=== PATIENT | female | born 1990 | race Caucasian/White ===

== ENCOUNTER 2019-09-28 18:16 | Inpatient (IN) ==
[2019-09-28 16:46] LABS: Basophils % 0.2 %; Eosinophils # 0.1 K/mcL (0.0-0.6); Eosinophils % 0.7 %; Hematocrit 30.3 % (35.3-44.9); Hemoglobin 9.3 g/dL (11.5-15.4); Immature Granulocytes % 1.1 % (0-4); Lymphocytes # 2.1 K/mcL (0.6-4.6); Lymphocytes % 15.5 %; Mean Corpuscular HGB Conc 30.7 g/dL (31.6-35.5); Mean Corpuscular Hemoglobin 27.4 pg (28.0-33.3); Mean Corpuscular Volume 89.4 fL (83.0-100.0); Mean Platelet Volume 11.1 fL (9.4-12.4); Monocytes % 7.3 %; Neutrophils # 9.9 K/mcL (1.6-8.9); Platelet Count 304 K/mcL (140-400); Red Blood Count 3.39 M/mcL (3.82-4.97); Segmented Neutrophils % 75.2 %; White Blood Count 13.2 K/mcL (4.3-11.1)
[2019-09-28 16:55] LABS: Protein/Creatinine Ratio,Urine 1.35 mg/mg (0.00-0.20)
[2019-09-28 17:05] LABS: Alanine Aminotransferase 9 Units/L (7-52); Aspartate Amino Transferase 14 Units/L (13-39); BUN/Creatinine Ratio 14 (6-26); Blood Urea Nitrogen 6 mg/dL (6-20); Lactate Dehydrogenase 216 Units/L (140-271); Uric Acid 3.8 mg/dL (2.3-7.6); eGFR For African Americans > 60 (> 60); eGFR For Non-African Americans > 60 (> 60)
[~2019-09-28 18:16] MED LIST: *HR* FentaNYL (PF) 100 MCG/2 ML VIAL IVP PRN; Famotidine 20 MG/2 ML VIAL IVP PRN; Lidocaine 1% 20 ML MDV INFILT PRN; Metoclopramide 10 MG/2 ML VIAL IVP PRN; Naloxone 0.4 MG/ML INJ IVP PRN; Ondansetron 4 MG/2 ML VIAL IVP PRN
[2019-09-28] MEDS ORDERED: Ringers Solution, Lactated 1,000 ML IVC SCH (18:30)
[2019-09-28 18:51] LABS: Amphetamine Screen,Urine Negative ng/mL (Cutoff=1000); Barbiturate Screen,Urine Negative ng/mL (Cutoff=200); Benzodiazepines Screen,Urine Negative ng/mL (Cutoff=200); Cannabinoid Screen,Urine Negative ng/mL (Cutoff = 50); Cocaine Screen,Urine Negative ng/mL (Cutoff= 300); Opiate Screen,Urine Negative ng/mL (Cutoff=300); Phencyclidine Screen,Urine Negative ng/mL (Cutoff=25)
[2019-09-28] MEDS ORDERED: EPHEDrine 50 MG/ML VIAL IVP PRN (19:25)
[2019-09-28] MEDS ORDERED: Epidural Premix (fent/bupiv) 110 ML EP SCH (19:30)
[2019-09-28] MEDS ORDERED: Epidural Premix (fent/bupiv) 110 ML EP ONE (19:30)
[2019-09-28] MEDS ORDERED: miSOPROStoL 25 MCG TABLET PO PRN (19:34)
[2019-09-28] MEDS ORDERED: *HR* Ropivacaine/PF 0.5% 20 ML VIAL ONE (22:18)
[2019-09-28] MEDS ORDERED: Ropivacaine/PF 0.2% 20 ML VIAL ONE (22:18)
[2019-09-28] MEDS ORDERED: Oxytocin 20 units/ LR 1000 mL 20 UNIT/1,000 ML BAG IVC ONE (23:47)
[2019-09-29] MEDS ORDERED: Lanolin 7 G OINT...G. TP PRN ×2 (00:06→02:24)
[2019-09-29] MEDS ORDERED: Benzocaine/Menthol 56 GM AEROSOL SPRAY TP PRN ×2 (00:06→02:24)
[2019-09-29] MEDS ORDERED: Ibuprofen 600 MG TABLET PO PRN (00:06)
[2019-09-29] MEDS ORDERED: Acetaminophen 325 MG TABLET PO PRN ×2 (00:06→02:24)
[2019-09-29] MEDS ORDERED: Oxytocin 20 units/ LR 1000 mL 20 UNIT/1,000 ML BAG IVC SCH ×2 (00:15→02:24)
[2019-09-29] MEDS: Ibuprofen 600 MG TABLET PO PRN ×4 (02:34→20:58)
[2019-09-29] MEDS: Prenatal Vit/FA 1 EACH TABLET PO SCH (07:51)
[2019-09-29] MEDS ORDERED: Prenatal Vit/FA 1 EACH TABLET PO SCH (09:00)
[2019-09-29 09:43] LABS: Basophils % 0.2 %; Eosinophils # 0.1 K/mcL (0.0-0.6); Eosinophils % 0.3 %; Immature Granulocytes % 0.7 % (0-4); Lymphocytes # 1.5 K/mcL (0.6-4.6); Lymphocytes % 8.1 %; Mean Corpuscular Hemoglobin 27.5 pg (28.0-33.3); Mean Corpuscular Volume 88.7 fL (83.0-100.0); Monocytes # 0.9 K/mcL (0.0-1.3); Monocytes % 4.9 %; Neutrophils # 16.2 K/mcL (1.6-8.9); Platelet Count 264 K/mcL (140-400); Red Blood Count 3.27 M/mcL (3.82-4.97); Segmented Neutrophils % 85.8 %; White Blood Count 18.9 K/mcL (4.3-11.1)
[2019-09-29 10:02] LABS: Alanine Aminotransferase 9 Units/L (7-52); Aspartate Amino Transferase 18 Units/L (13-39); BUN/Creatinine Ratio 9 (6-26); Blood Urea Nitrogen 4 mg/dL (6-20); Lactate Dehydrogenase 286 Units/L (140-271); Uric Acid 3.7 mg/dL (2.3-7.6); eGFR For African Americans > 60 (> 60); eGFR For Non-African Americans > 60 (> 60)
[2019-09-29] MEDS ORDERED: *HR* Oxytocin 10 UNIT/ML VIAL IM ONE (13:06)
[2019-09-30] MEDS: Ibuprofen 600 MG TABLET PO PRN (06:30)
[2019-09-30 07:55] VITALS: BP 132/82
[2019-09-30] MEDS: Prenatal Vit/FA 1 EACH TABLET PO SCH (08:25)
== END 2019-09-30 10:30 | disposition home or self-care (01) | DRG 807 ==
LOC: 1NENULAB → 1NENUOBS 09-29 02:07
PROVIDERS: ADMIT Advanced Practice Midwife; ATTEND Advanced Practice Midwife